=== PATIENT | male | born 1980 | race Caucasian/White ===

== ENCOUNTER 2021-03-08 05:49 | Observation (INO) ==
--- NOTE | 2021-03-03 11:43 | Anesthesiology Consultation ---
Date of Service March 03, 2021 Assessment & Plan Chart Review Chart Review: Acceptable Risk for Surgery Consults Requested none History Surgery Operation Date: 03/08/21 12:55 Proposed Procedures p C6 Corpectomy, Spinal Cord Monitoring - Huang Poe DO Height/Weight Height: 5 ft 8.5 in Weight: 146.964 kg Allergies Allergy/AdvReac Type Severity Reaction Status Date / Time Corticosteroids AdvReac Intermediate "VERY SICK" Verified 03/02/21 08:13 (Glucocorticoids) prednisone AdvReac Intermediate vomiting Verified 03/02/21 08:13 and diarrhea Medications Home Medications Medication Instructions Recorded Confirmed Last Taken Medical Marijuana 1 dose INHALATION UD PRN 03/02/21 03/03/21 Unknown Past Medical History Medical History (Updated 03/03/21 @ 07:52 by Leslie Garzon PA-C) Deep vein thrombosis AGE 20'S AFTER BACK SURGERY Factor 5 Leiden mutation, heterozygous Spinal stenosis Past Family History Family History (Updated 03/02/21 @ 08:19 by Trisha Kyle, ANGELA) Grandmother (Maternal) Dementia 83 Mother Diabetes oral agents Anxiety Depression care home treatment Father Diabetes oral agents Other No family history of adverse response to anesthesia Denies family history of Ovarian cancer Prostate cancer Myocardial infarction Breast cancer Lung cancer Colorectal cancer Hypertension Past Surgical History Surgical History (Updated 03/02/21 @ 08:18 by Trisha Kyle, ANGELA) History of back surgery History of lumbar laminectomy X 2 History of myringotomy History of tonsillectomy Hypopharyngeal stenosis age 5 "opened up" [place] teeth removed Social History Smoking Status: Current every day smoker tobacco type: cigarettes and smokeless tobacco Smoking cigarettes per day: 1 to less then 1 pack per day Do You Dip or Chew Tobacco: Yes (ADVISED) Smoking End Date: 13 Hx Alcohol Use: Yes Alcohol type: beer alcohol intake frequency: a few times a month Hx Substance Use: Yes substance use type: does not use Last Used Substance Other:: ONLY RX MARIJUANA (HAS MEDICAL CARD)
[2021-03-08] MEDS ORDERED: CeleBREX 200 MG CAP PO SCH (06:00)
[2021-03-08] MEDS ORDERED: GABAPENTIN 900 MG DOSE PO SCH (06:00)
[2021-03-08] MEDS ORDERED: ACETAMINOPHEN 500 MG TAB PO SCH (06:00)
[2021-03-08] MEDS ORDERED: LR 15ML/HR IV SCH (06:00)
[2021-03-08] MEDS ORDERED: MIDAZOLAM HCL 1 MG/ML 2ML VIAL ONE (06:43)
[2021-03-08] MEDS ORDERED: ROCURONIUM BROMIDE 10 MG/ML 5 ML VIAL IV ONE (06:43)
[2021-03-08] MEDS ORDERED: LIDOCAINE 2% 2 ML VIAL/AMP(20MG/ML) INFIL ONE (06:43)
[2021-03-08] MEDS ORDERED: PROPOFOL IV EMULSION 10 MG/ML 20 ML VIAL IV ONE ×4 (06:43→09:13)
[2021-03-08] MEDS ORDERED: fentaNYL citrate 100 MCG/2 ML VIAL ONE ×3 (06:43→08:29)
[2021-03-08] MEDS ORDERED: ONDANSETRON INJ 2 MG/ML 2 ML VIAL ONE ×2 (06:43→08:34)
--- NOTE | 2021-03-08 07:27 | History & Physical Bridge Note ---
Date of Service March 08, 2021 History & Physical Bridge Note I have examined the patient, reviewed the History & Physical and in the interval since the performance of the History & Physical I have noted the following changes of clinical significance: no changes noted
--- NOTE | 2021-03-08 07:29 | History & Physical Report ---
Date of Service March 08, 2021 Assessment & Plan (1) Myelopathy concurrent with and due to spinal stenosis of cervical region: Plan: C6 corpectomy History of Present Illness Chief Complaint: Neck and arm pain with weakness Primary Care Provider: Leslie Garzon PA-C This is a 40-year-old male presents with marked chronic neurologic status. Is here for urgent anterior cervical surgery Allergies Allergy/AdvReac Type Severity Reaction Status Date / Time Corticosteroids AdvReac Intermediate "VERY SICK" Verified 03/08/21 06:33 (Glucocorticoids) prednisone AdvReac Intermediate vomiting Verified 03/08/21 06:33 and diarrhea Home Medications Medication Instructions Recorded Confirmed Type Medical Marijuana 1 dose INHALATION UD PRN 03/02/21 03/08/21 History Past Med/Surg History Medical History (Updated 03/08/21 @ 07:28 by Huang Poe DO) Deep vein thrombosis AGE 20'S AFTER BACK SURGERY Factor 5 Leiden mutation, heterozygous Preoperative general physical examination Spinal stenosis Surgical History History of back surgery History of lumbar laminectomy X 2 History of myringotomy History of tonsillectomy Hypopharyngeal stenosis age 5 "opened up" [place] teeth removed Family History (Updated 03/02/21 @ 08:19 by Trisha Kyle RN) Grandmother (Maternal) Dementia 83 Mother Diabetes oral agents Anxiety Depression terminal manager treatment Father Diabetes oral agents Other No family history of adverse response to anesthesia Denies family history of Ovarian cancer Prostate cancer Myocardial infarction Breast cancer Lung cancer Colorectal cancer Hypertension Social History (Updated 05/25/20 @ 07:58 by Leslie Poe MA) Smoking Status: Current every day smoker Tobacco Type: Cigarettes Age Started Using Tobacco: 16; packs per day: 1; Cigarettes Per Day: 1 to less then 1 pack per day; Smoking End Date: 13; Second Hand Exposure: Yes; Do You Dip or Chew Tobacco: Yes (ADVISED); Tobacco Cessation Education Requested by Patient: No Hx Alcohol Use: Yes Alcohol type: beer Hx Substance Use: Yes Non-Prescribed Medications: Crack / Cocaine and Heroin Last Used Substance Other:: ONLY RX MARIJUANA (HAS MEDICAL CARD) Preferred Language: Cantonese Swazi Communication Ability: Effective Hearing Ability: Normal Firearms Instructor Required: No Beliefs That Will Affect Care: None marital status: Legally Current Living Situation: Alone How many Children do You have: 1 How many Children do You have Comment: Son AVERY's, Now has 0 ch ildren Feels Safe at Home: Yes Safety Concerns: Feels Safe At This Time Childhood Exposure to Second-Hand Smoke: No Seatbelt Use: sometimes Sunscreen Use: No Assistive Devices: Contacts and Glasses Physical Exam Physical Exam: Patient is alert and oriented Heart regular in rhythm Lungs clear to auscultation Results & Data ([facility]) Vital Signs (Past 12 Hours) Vital Signs Temp Pulse Resp BP Pulse Ox 03/08/21 06:36 36.6 C 67 18 109/85 99
[2021-03-08] MEDS ORDERED: SUCCINYLCHOLINE CHLORIDE 20 MG/ML 10 ML VIAL IV ONE (08:03)
[2021-03-08] MEDS ORDERED: LARYING-O-JET KIT (LTA) ONE (08:23)
[2021-03-08] MEDS ORDERED: GLYCOPYRROLATE 0.2 MG/ML VIAL ONE (08:31)
[2021-03-08] MEDS ORDERED: NEOSTIGMINE METHYLSULFATE 1 MG/ML 10ML VIAL ONE (08:31)
[2021-03-08] MEDS ORDERED: DEXAMETHASONE SOD INJ 4 MG/ML VIAL ONE (09:13)
[2021-03-08] MEDS ORDERED: ePHEDrine sulfate 50 MG/ML AMP IV PRN (09:14)
[2021-03-08] MEDS ORDERED: ATROPINE SULFATE 0.1 MG/ML 10ML SYR IV PRN (09:14)
[2021-03-08] MEDS ORDERED: FLOSEAL HEMOSTATIC MATRIX 10ML TOP ONE (09:27)
--- NOTE | 2021-03-08 09:36 | Operative Report ---
Post Operative Report Pre & Post Diagnosis Operation Date: 03/08/21 07:45 Pre-Op Diagnosis: Myelopathy Concurrent with and due to Spinal Stenosis of Cervical Region Post-Op Diagnosis: Myelopathy Concurrent with and due to Spinal Stenosis of Cervical Region I identified the patient and participated in the time-out.: Yes Procedure Operation Date: 03/08/21 07:45 Actual Procedures #1 intracervical corpectomy with bilateral foraminotomies C6. #2 anterior cervical arthrodesis C5-C7. #3 placement 25 mm peek cage C5-C7. #4 placement locally harvested morselized autograft combined with I factor and interbody cage. #5 application of brar plate and screws from C5-C7. Surgeon Huang Poe, DO Record Librarian Roselyn Richey Estimated Blood Loss 25 Findings See Below The patient is 5 foot 8 weighing over 149 kg with a BMI in excess of 50. The patient's body habitus did contribute to significant technical difficulty from patient positioning through exposure. He required her deepest retractors longer instruments in order to perform his procedure. This had at least 50% increase to the operative time. Specimens None Indications This is a 40-year-old male who presents with gross myelopathy and after obtaining cervical imaging was scheduled for urgent decompression fusion. Description of Procedure Patient was met with identified informed consent obtained. Patient was then taken to the operative suite underwent ablation placed in supine position Jack n table the head [place] head ordered. All bony prominences well-padded eyes inspected to ensure no external pressure placed upon the. This point the anterior cervical spine was prepped and draped in a sterile fashion. With assistance of fluoroscopy identified the C6 vertebral body and a transverse incision was placed along the right anterior aspect of the cervical spinal lines region. Sharp dissection with the assistance of bipolar electrocautery was performed down to and exposing the anterior cervical spine from C5-C7. A self- retaining retractor was placed. Then performed a complete discectomy of C5-C6 out to the uncovertebral joints bilaterally followed by C6-C7. [place] distracting pins were used distract across the C6 vertebral body. A complete corpectomy was then performed which included removal of all posterior annular fibers longitudinal ligament bilateral foraminotomies. Massive disc herniation was appreciated C6-C7 with adhesions to the dura. After complete decompression endplates were then burred to subcortical being bone and a 25 mm peek cage filled locally harvested morselized autograft and I factor tapped in position. Distracting apparatus was removed and a brar plate and screws applied with the assistance of fluoroscopy. The incision was then copiously irrigated explored to ensure no damage to surrounding structures remaining bleeding. 10 round DAWN drain inserted. The incision was then closed with 2 Vicryl in a fashion of 4 Monocryl for final skin closure. Steri-Strip sterile dressings placed. Patient waken taken to PACU stable condition. Please note spinal cord monitoring was utilized at the procedure no changes noted. Lastly Roselyn Richey was present at the entire surgery while the patient positioning complex portions of the surgery and final skin closure. I attest to the content of the Intraoperative Record and any orders documented therein. Any exceptions are noted below.
[2021-03-08] MEDS ORDERED: PROMETHAZINE HCL 25 MG in SODIUM CHLORIDE 0.9% 50 ML IV ONE (10:00)
[2021-03-08] MEDS: fentaNYL citrate 100 MCG/2 ML VIAL IV PRN ×2 (10:18→10:30)
--- NOTE | 2021-03-08 10:39 | Anesthesiology Progress Note ---
Date of Service March 08, 2021 Anesthesia Post Procedure Vital Signs Vital Signs: Temp Pulse Pulse Resp BP Pulse Ox 03/08/21 10:30 54 L 13 126/81 97 03/08/21 10:20 57 L 15 138/78 95 03/08/21 10:10 63 13 134/82 99 03/08/21 10:05 61 12 135/85 98 03/08/21 09:55 79 14 130/67 95 03/08/21 09:48 36.0 C L 94 H 12 126/53 L 93 03/08/21 06:36 36.6 C 67 18 109/85 99 Pain Intensity Anterior Neck: Pain Intensity: 9 Transfer of Care Handoff Completed per policy Notes Mental Status: alert / awake / arousable and participated in evaluation Patient Amnestic to Procedure: Yes Nausea / Vomiting: adequately controlled Pain: adequately controlled Airway Patency, RR, SpO2: stable & adequate BP & HR: stable & adequate Hydration State: stable & adequate Anesthetic Complications: no major complications apparent
--- NOTE | 2021-03-08 11:15 | Fluoroscopy Report ---
INTRAOPERATIVE RADIOGRAPHS CLINICAL HISTORY: Cervical spine fusion. Fluoroscopy time: 17 seconds. FINDINGS: 3 spot fluoroscopic views of the cervical spine are presented. An endotracheal tube is in p lace. There is evidence of corpectomy at C6 with anterior fusion at C5-C7. The orthopedic hardware ap pears intact. IMPRESSION: Intraoperative images from cervical spinal fusion surgery as above. Electronically signed by: Palmer Almeida M.D. 03/08/2021 11:14 AM
[2021-03-08] MEDS ORDERED: LORazepam 0.5 MG TAB PO PRN (15:22)
[2021-03-08] MEDS ORDERED: ALUMINUM/MAGNESIUM SUSP 30 ML UDC PO PRN (15:22)
[2021-03-08] MEDS ORDERED: SOD PHOSPHATE/SOD BIPHOSPHATE ENEMA 132 ML BTL PR PRN (15:22)
[2021-03-08] MEDS ORDERED: DO NOT ADMINISTER FLU VACCINE PRN (15:22)
[2021-03-08] MEDS ORDERED: FAMOTIDINE 20 MG TAB PO PRN (15:22)
[2021-03-08] MEDS ORDERED: LORazepam 0.5 MG/1 ML VIAL IV PRN (15:22)
[2021-03-08] MEDS ORDERED: ACETAMINOPHEN 500 MG TAB PO PRN (15:22)
[2021-03-08] MEDS ORDERED: DO NOT ADMINISTER PNEUMOCOCCAL VACCINE PRN (15:22)
[2021-03-08] MEDS ORDERED: RACEPINEPHRINE 2.25% NEBU SOLN 0.5 ML VIAL INH PRN (15:22)
[2021-03-08] MEDS ORDERED: diphenhydrAMINE Capsule 25 MG CAP PO PRN (15:22)
[2021-03-08] MEDS ORDERED: hydrOXYzine HCl 25 MG TAB PO PRN (15:22)
[2021-03-08] MEDS ORDERED: ACETAMINOPHEN 1,000 MG/100 ML VIAL IV PRN (15:22)
[2021-03-08] MEDS ORDERED: METOCLOPRAMIDE HCL INJ 5 MG/ML 2 ML VIAL IV PRN (15:22)
[2021-03-08] MEDS ORDERED: traMADol HCL 50 MG TABLET PO PRN (15:22)
[2021-03-08] MEDS ORDERED: PROMETHAZINE HCL 12.5 MG in SODIUM CHLORIDE 0.9% 50 ML IV PRN (15:22)
[2021-03-08] MEDS ORDERED: oxyCODONE HCL IR 5 MG TAB (IMMEDIATE RELEASE) PO PRN (15:22)
[2021-03-08] MEDS ORDERED: MAGNESIUM HYDROXIDE SUSP 30 ML UDC PO PRN (15:22)
[2021-03-08] MEDS ORDERED: ONDANSETRON INJ 2 MG/ML 2 ML VIAL IV PRN (15:22)
[2021-03-08] MEDS ORDERED: ONDANSETRON 4 MG OD TAB PO PRN (15:22)
[2021-03-08] MEDS ORDERED: NALOXONE HCL 0.4 MG/1 ML VIAL/CARP IV PRN (15:22)
[2021-03-08] MEDS ORDERED: NON-FORMULARY MEDICATION (Medical Marijuana 1 EA) PO PRN (15:22)
[2021-03-08] MEDS ORDERED: dexAMETHasone 8 MG in SYRINGE 0 ML IV PRN (15:22)
[2021-03-08] MEDS ORDERED: MEDICAL MARIJUANA INH PRN (15:45)
[2021-03-08] MEDS ORDERED: MEDICAL MARIJUANA PO PRN (15:45)
[2021-03-08] MEDS: ceFAZolin 2000MG 2,000 MG/15 ML SYR IV SCH ×2 (16:31→23:45)
[2021-03-08] MEDS: LACTATED RINGER'S 1,000 ML IV SCH ×2 (16:35→23:45)
[2021-03-08] MEDS ORDERED: DOCUSATE SODIUM/SENNA 50/8.6MG TAB PO SCH (21:00)
[2021-03-09] MEDS: POLYETHYLENE (MIRALAX) 17 GM PACK PO SCH ×2 (05:48→11:46)
[2021-03-09 09:48] LABS: Hemoglobin 14.3 g/dL (14.0-18.0); Mean Corpuscular Hemoglobin 30.6 pg (25-34); Mean Corpuscular Volume 89.9 fL (80-100); Mean Platelet Volume 9.7 fL (7.4-10.4); Platelet Count 199 K/uL (130-400); RDW Coefficient of Variation 12.9 % (11.5-14.5); RDW Standard Deviation 42.1 fL (36.4-46.3); Red Blood Count 4.67 M/uL (4.7-6.1); White Blood Count 12.21 K/uL (4.8-10.8)
[2021-03-09 09:57] VITALS: BP 119/67; TEMP 97.5
[2021-03-09 10:06] LABS: BUN Creatinine Ratio 20.4 (10-20); Creatinine Clr Calc Pharmacy 164.5 ml/min; Est GFR (African American) 127.1 ml/min; Est GFR (Non-African American) 109.6 ml/min
[2021-03-09 11:15] VITALS: PULSE 68; O2SAT 95
[2021-03-09 11:33] LABS: Estimated Average Glucose 117 mg/dl; Hemoglobin A1C 5.7 % (4.5-5.6)
--- NOTE | 2021-03-09 11:51 | Discharge Summary ---
Date of Service March 09, 2021 Admission HPI Per Admitting Provider This is a 40-year-old male presents with marked chronic neurologic status. Is here for urgent anterior cervical surgery Principal Diagnosis Cervical spinal stenosis with myeloradiculopathy Discharge Data Allergies Allergy/AdvReac Type Severity Reaction Status Date / Time Corticosteroids AdvReac Intermediate "VERY SICK" Verified 03/08/21 06:33 (Glucocorticoids) prednisone AdvReac Intermediate vomiting Verified 03/08/21 06:33 and diarrhea Consultations 03/08/21 15:22 Consult Hospitalist Routine Procedures Performed Operation Date: 03/08/21 07:45 Actual Procedures p C6 Corpectomy, Spinal Cord Monitoring(Not Applicable) - Huang Poe DO Ordered Studies 03/08/21 07:45 [place] cervical 2-3V Routine Hospital Course (1) Myelopathy concurrent with and due to spinal stenosis of cervical region: Patient went anterior cervical corpectomy cholecystectomy orthopedic for postop bleed. Postop day 1 he was swallowing well no hoarseness arm and leg symptoms markedly improved. DAWN drain decreasing probably. Subsequent discharge home. Discharge orders instructions from the chart for further review. Total Time Total Time Spent Total Time Spent (In Minutes): 20 minutes Discharge Plan Discharge Items Patient Disposition: Home - Self-Care Reason For Visit: Other Spondylosis with Myelopathy, Cervical Region Discharge Diagnosis: Cervical spinal stenosis with myelopathy Activity: As commented below Non-emergency contact: Primary Care Provider Call non-emergency contact if: you have any medication questions Follow-up/Referrals: Leslie Garzon PA-C [Primary Care Provider] - Diet: Regular Addtl Attending Provider Instructions: ACTIVITY RECOMMENDATIONS: SELF CARE INSTRUCTIONS AFTER CERVICAL FUSIONS 1. No smoking. Smoking drastically decreases the chance of a solid fusion. 2. No bending, lifting more than 5 pounds, or twisting (roll like a log when turning in bed). 3. You may shower 3 days after surgery. Thoroughly dry wound. Do not soak in the tub. 4. Cervical collar: Must be worn at all times including sleeping. You may remove the brace only to bath, eat and if you are sitting in a recliner. 5. Please walk as much as you can for exercise. Gradually increase the distance that you walk as your endurance increases. SPECIAL CARE INSTRUCTIONS: VERY IMPORTANT TO READ AND REVIEW A. Do not take any anti-inflammatory medications (i.e. Indocin, Advil, Aspirin, Naprosyn, Aleve, Motrin, etc.) as these may inhibit the chance of a solid fusion. Tylenol is okay to take. B. Your surgical incision has been closed with a cosmetic suture under the skin that will dissolve in about 6 weeks. In 14 days, you can use a pair of clean scissors and cut the suture that is left outside of the skin at the ends of your incision. C. Complications are uncommon, but please contact us if you have any signs or symptoms of: 1. wound infection (fever higher than 102.5 degrees F, redness, separation of wound, drainage, or increasing pain from the incision) 2. blood clots in legs (pain, swelling, redness and warmth in legs) 3. urinary tract infection (fever higher than 102.5 degrees, burning upon urination or increased frequency of urination) 4. nerve problems (inability to walk on your toes or heels, numbness, loss of bowel or bladder control) 5. any other symptoms that concern you. D. Please call the office at if you have any concerns or q uestions about your operation or recovery. MANAGING PAIN AFTER SPINAL SURGERY 1. Narcotic medication is intended for short-term use and will be provided for surgical pain. Surgical pain usually lasts for a period of 4-6 weeks. Narcotic medication includes Percocet, Vicodin, Darvocet, Tylenol #3 or Lortab. 2. Longer-term pain is more appropriately treated with non-narcotic medication such as Tylenol ES. 3. Muscle spasm is not appropriately treated with narcotics. Muscle relaxers such as Soma, Flexeril or Skelaxin can be used along with Tylenol ES. 4. Remember that we all live with some "aches and pains". This is not unusual or uncommon after an injury or as we get older. 5. We will provide appropriate medication within the normal guidelines of their prescribed use. We will also be very cautious and aware of potential abuse and extended duration of patients' medication needs. 6. Please allow 2-3 days to process refills. Prescriptions will not be mailed but must be picked up at the office. FOLLOW UP VISIT: Keep your scheduled follow-up appointment. Any questions, please call the office at . Pending Studies at Discharge: No Stand-Alone Forms: My [facility], Opioid Pain Management, Smoking Cessation Medications and DC Order Prescriptions: New tramadol 50 mg tablet 50 mg PO Q6H PRN (Reason: pain, moderate) Qty: 20 RF: 0 oxycodone 5 mg tablet 5 mg PO Q6H PRN (Reason: pain, severe) Qty: 20 RF: 0 Continued Medical Marijuana 1 dose inhalation UD PRN (Reason: Pain) RF: 0 Discharge Orders: Discharge Order (Routine); Ordered 03/09/21 Ordered By: Huang Deal/Other Patient Handouts: DVT Post Op Prevention Admission Data Admit Date/Time: 03/08/21 09:38 Attending Provider: Huang Poe Admit Provider: Huang Poe Primary Care Provider: Leslie Garzon Other Providers: Karlo Prakash Other Interventions: Discharge Summary Assessment (RN) Last Done: 03/09/21 10:49
[2021-03-10] MEDS ORDERED: bisacodyL 10 MG SUPP PR PRN (08:00)
== END 2021-03-09 12:29 | disposition home or self-care (01) ==
LOC: ASU 05:49 → INTOOBSV 09:38 → PACUINP 09:38 → 3E 15:22